=== PATIENT | male | born 1990 | race Two or more races ===

== ENCOUNTER → 2020-01-14 | Emergency (ER) | payer OTHER ==
[~2020-01-14] VITALS: Ht 182.9 cm; Wt 74.8 kg
[~2020-01-14] MED LIST: IBUPROFEN 600 MG TAB PO ONE; cefTRIAXone SOD 1,000 MG VL IM ONE
[2020-01-14 12:54] VITALS: BP 119/80
== END | disposition home or self-care (01) ==
LOC: ER 11:08
DX: T25.221A Burn of second degree of right foot, initial encounter (principal); T31.0 Burns involving less than 10% of body surface; X08.8XXA Exposure to other specified smoke, fire and flames, initial encounter; Y93.89 Activity, other specified; Y92.89 Other specified places as the place of occurrence of the external cause; Y99.0 Civilian activity done for income or pay
CPT/HCPCS: 96372; 99283; J0696